=== PATIENT | male | born 2000 | race Caucasian/White ===

== ENCOUNTER 2020-09-22 13:51 | Emergency (ER) | payer MEDICAID, OTHER ==
[~2020-09-22] VITALS: Ht 198.1 cm; Wt 90.0 kg
[2020-09-22 13:57] VITALS: BP 131/63
[2020-09-22] MEDS ORDERED: IBUPROFEN 600MG TABLET PO ONE (15:00)
== END 2020-09-22 15:41 | disposition home or self-care (01) ==
LOC: ER 14:25
DX: T14.8XXA Other injury of unspecified body region, initial encounter (principal); M25.512 Pain in left shoulder; M25.562 Pain in left knee; V43.52XA Car driver injured in collision with other type car in traffic accident, initial encounter; Y93.89 Activity, other specified; Y92.488 Other paved roadways as the place of occurrence of the external cause
CPT/HCPCS: 73030; 73562; 99284

== ENCOUNTER 2025-06-09 17:00 | Emergency (ER) | payer MEDICAID ==
[~2025-06-09] VITALS: Ht 198.1 cm; Wt 93.0 kg
[2025-06-09 17:11] VITALS: TEMP 37.2; O2SAT 100
[2025-06-09] MEDS ORDERED: LIDO-53 TP (17:46)
[2025-06-09 18:09] VITALS: BP 127/62; PULSE 64; RESP 18; O2SAT 100
== END 2025-06-09 18:10 | disposition home or self-care (01) ==
LOC: ER 17:06
DX: M25.511 Pain in right shoulder (principal); D64.9 Anemia, unspecified
CPT/HCPCS: 73030; 99283

== ENCOUNTER 2025-08-30 18:44 | Emergency (ER) | payer MEDICAID ==
[~2025-08-30] VITALS: Ht 188 cm; Wt 91.0 kg
[~2025-08-30 18:44] MED LIST: LIDO-53 TP
[2025-08-30 19:15] VITALS: TEMP 36.7; O2SAT 98
[2025-08-30] MEDS ORDERED: AMOX1TAB16 MT (20:12)
[2025-08-30] MEDS: AMOXICILLIN/POTASSIUM CLAVULANATE 875/125MG TAB PO ONE (20:19)
[2025-08-30 20:22] VITALS: BP 132/48; PULSE 85; RESP 18; O2SAT 99
== END 2025-08-30 20:27 | disposition home or self-care (01) ==
LOC: ER 18:44
DX: S61.253A Open bite of left middle finger without damage to nail, initial encounter (principal); Y04.1XXA Assault by human bite, initial encounter; Y93.89 Activity, other specified; Y92.89 Other specified places as the place of occurrence of the external cause; Y99.8 Other external cause status
CPT/HCPCS: 99283